=== PATIENT | male | born 1995 | race Caucasian/White ===

== ENCOUNTER 2019-09-09 17:32 | Emergency (ER) | payer MEDICAID ==
[~2019-09-09] VITALS: Ht 167.6 cm; Wt 85.3 kg
[2019-09-09 18:03] VITALS: Ht 167.6 cm; Wt 85.3 kg
[2019-09-09 19:13] VITALS: BP 125/73
== END 2019-09-09 19:13 | disposition home or self-care (01) ==
LOC: ED 17:32
DX: M67.441 Ganglion, right hand (principal); F17.210 Nicotine dependence, cigarettes, uncomplicated; F12.90 Cannabis use, unspecified, uncomplicated
CPT/HCPCS: 99406